=== PATIENT | male | born 1950 | race Caucasian/White ===

== ENCOUNTER 2018-07-16 14:49 | Emergency (ER) | payer OTHER ==
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
[2018-07-16 16:36] VITALS: BP 129/90
== END 2018-07-16 16:38 | disposition home or self-care (01) ==
DX: S00.93XA Contusion of unspecified part of head, initial encounter (principal); V43.52XA Car driver injured in collision with other type car in traffic accident, initial encounter; Y92.410 Unspecified street and highway as the place of occurrence of the external cause

== ENCOUNTER → 2018-08-12 | Outpatient (CLI) | payer OTHER | LOC: FIMAGING 13:20 | PROVIDERS: ATTEND Internal Medicine | DX: M47.816 Spondylosis without myelopathy or radiculopathy, lumbar region (principal); M46.97 Unspecified inflammatory spondylopathy, lumbosacral region; M50.322 Other cervical disc degeneration at C5-C6 level; M50.33 Other cervical disc degeneration, cervicothoracic region; S06.0X9A Concussion with loss of consciousness of unspecified duration, initial encounter; I26.99 Other pulmonary embolism without acute cor pulmonale; Q76.6 Other congenital malformations of ribs; I70.0 Atherosclerosis of aorta ==